=== PATIENT | male | born 1945 | race Caucasian/White ===

== ENCOUNTER 2018-05-11 09:23 | Emergency (ER) | payer MEDICARE, MEDICAID ==
[~2018-05-11] VITALS: Ht 180.3 cm; Wt 93.0 kg
[~2018-05-11 09:23] MED LIST: ASPI81TA52 PO; SIMV20TA5 PO
--- NOTE | 2018-05-11 09:50 | NUR ---
PT TAKEN TO CT,RT IS GOING WITH PT PT GOING WITH BI-PAP.
--- NOTE | 2018-05-11 10:09 | NUR ---
PT BACK FROM CT
[2018-05-11 10:10] LABS: BASOPHILS # (AUTO) 0.1 X10'3 (0-0.2); BASOPHILS % (AUTO) 0.6 % (0-1); EOSINOPHILS # (AUTO) 0.1 X10'3 (0-0.9); HEMATOCRIT 50.4 % (42.0-52.0); HEMOGLOBIN 17.6 g/dl (14.0-17.9); LYMPHOCYTES # (AUTO) 1.2 X10'3 (1.1-4.8); MEAN CORPUSCULAR HEMOGLOBIN 31.9 PG (27.0-31.0); MEAN CORPUSCULAR HGB CONC 34.9 g/dL (33.0-36.5); MEAN CORPUSCULAR VOLUME 91.5 FL (78-98); MEAN PLATELET VOLUME 11.2 FL (7.4-10.4); MONOCYTES # (AUTO) 0.5 X10'3 (0-0.9); MONOCYTES % (AUTO) 6.2 % (2-12); NEUTROPHILS # (AUTO) 6.2 X10'3 (1.8-7.7); NEUTROPHILS % (AUTO) 77.2 % (42-75); PLATELET COUNT 151 X10'3 (140-440); RED BLOOD COUNT 5.51 X10'6 (4.70-6.10); RED CELL DISTRIBUTION WIDTH 13.5 % (11.5-14.5); WHITE BLOOD COUNT 8.1 X10'3 (4.5-11.0)
[2018-05-11 10:18] LABS: ALBUMIN 3.8 G/DL (3.4-5.0); ANION GAP 12 (8-16); BLOOD UREA NITROGEN 25 MG/DL (7-18); CALCIUM 9.1 MG/DL (8.5-10.1); CHLORIDE 103 MMOL/L (99-107); CREATININE 1.25 MG/DL (0.60-1.10); GLUCOSE 141 MG/DL (70-104); POTASSIUM 3.8 MMOL/L (3.5-5.1); SODIUM 138 MMOL/L (135-145); TOTAL CARBON DIOXIDE 23.3 MMOL/L (24-32); eGFR 56 ML/MIN
[2018-05-11] MEDS ORDERED: dexamethasone sod phosphate 10mg/ml inj IM STA (10:21)
[2018-05-11] MEDS ORDERED: SUMAtriptan succ. 6 MG/0.5ml vial SQ ONE (10:25)
[2018-05-11] MEDS ORDERED: proCHLORperazine 10 MG/2 ml inj IM ONE (10:25)
[2018-05-11 11:09] VITALS: BP 169/92
[2018-05-11 11:28] LABS: LARGE PLATELETS FEW; PLATELET ESTIMATE NORMAL
== END 2018-05-11 11:10 | disposition home or self-care (01) ==
LOC: ER 09:23
DX: R51 Headache (principal); Z79.01 Long term (current) use of anticoagulants; R42 Dizziness and giddiness; R11.2 Nausea with vomiting, unspecified; E78.00 Pure hypercholesterolemia, unspecified; Z91.030 Bee allergy status; Z88.0 Allergy status to penicillin; Z88.5 Allergy status to narcotic agent; Z91.013 Allergy to seafood; Z79.82 Long term (current) use of aspirin; Z79.899 Other long term (current) drug therapy
CPT/HCPCS: 36415; 70450; 80048; 85025; 96372; 99284; J0780; J1100; J3030

== ENCOUNTER 2021-02-21 16:46 | Emergency (ER) | payer MEDICARE, MEDICAID ==
[~2021-02-21] VITALS: Ht 180.3 cm; Wt 102.5 kg
[~2021-02-21 16:46] MED LIST changes: +SIMV-42 PO; -SIMV20TA5 PO
[2021-02-21 16:55] VITALS: BP 151/84
[2021-02-21] MEDS ORDERED: ondansetron 4mg rapidly disintigrating tab PO ONE (17:00)
[2021-02-21] MEDS ORDERED: HYDROcodone/acetaminophen 5mg/325mg tablet PO ONE (17:00)
[2021-02-21] MEDS ORDERED: ondansetron/PF 4mg/2ml inj IV ONE (17:20)
[2021-02-21] MEDS ORDERED: morphine 4 MG/ML inj SYRINge IV ONE (17:20)
[2021-02-21] MEDS: normal saline 500ml IV soln 500 ML IV SCH ×3 (17:25→19:43)
[2021-02-21] MEDS ORDERED: normal saline 1000ML IV soln IVB ONE (17:25)
== END 2021-02-21 19:44 | disposition home or self-care (01) ==
LOC: ER 16:46
DX: S42.292A Other displaced fracture of upper end of left humerus, initial encounter for closed fracture (principal); S46.002A Unspecified injury of muscle(s) and tendon(s) of the rotator cuff of left shoulder, initial encounter; E78.00 Pure hypercholesterolemia, unspecified; Z95.0 Presence of cardiac pacemaker; Z91.030 Bee allergy status; Z88.0 Allergy status to penicillin; Z88.8 Allergy status to other drugs, medicaments and biological substances; Z91.013 Allergy to seafood; Z79.82 Long term (current) use of aspirin; Z79.01 Long term (current) use of anticoagulants; Z79.899 Other long term (current) drug therapy; Z95.5 Presence of coronary angioplasty implant and graft; W01.0XXA Fall on same level from slipping, tripping and stumbling without subsequent striking against object, initial encounter; Y93.89 Activity, other specified; Y92.89 Other specified places as the place of occurrence of the external cause; Y99.8 Other external cause status
CPT/HCPCS: 29105; 73030; 96374; 99283; J2405; J7030; J7040

== ENCOUNTER 2024-07-19 11:05 | Emergency (ER) | payer MEDICARE ==
[~2024-07-19] VITALS: Ht 180.3 cm; Wt 92.0 kg
[2024-07-19 11:28] VITALS: BP 118/61; PULSE 51; RESP 18; O2SAT 99
--- NOTE | 2024-07-19 11:34 | Physician Documentation ---
History of Present Illness ~ Stated Complaint: R HIP PAIN Time Seen by MD: 11:29 OK to notify your PCP?: No Primary Medical Doctor: roxanna [facility] 79 Year old male presents to the ED after falling two days ago on his right hip. States that since then he has had excruciating pain to a level 12. States that he is having difficulty with ambulation. Says he had a ground level fall from wheelchair. Denies any head strike Day of Onset: July 19, 2024 Medication Reconciliation Allergies: Coded Allergies: venom-honey bee (Unverified Allergy, Intermediate, hives & swelling , 05/13/14) Penicillins (Verified Allergy, Unknown, 08/03/13) acetaminophen (Verified Adverse Reaction, Intermediate, 08/03/13) nausea hydrocodone (Verified Adverse Reaction, Intermediate, 08/03/13) nausea Uncoded Allergies: shrimp (Allergy, Intermediate, rash, respiratory distress, 05/13/14) Scheduled Aspirin (Aspirin EC), 1 TABLET PO DAILY, (Reported) Simvastatin* (Zocor*), 1 TAB PO HS, (Reported) Scheduled PRN Hydrocodone Bit/Acetaminophen 5/325 MG ([place] 5/325 MG), 1 TAB PO Q6H PRN for pain Past Medical History Past Medical History: High Cholesterol Past Surgical History: pacemaker Patient History: (CABG) Coronary artery bypass grafting MOTHER, Name: Elizabeth Mehta , , Age: 60 years and older, Cause: CVA (cerebral vascular accident), Not a twin, Race: WHITE, Onset:Unknown (CAD) Coronary arteriosclerosis MOTHER, Name: Elizabeth Mehta , , Age: 60 years and older, Cause: CVA (cerebral vascular accident), Not a twin, Race: WHITE, Onset:Unknown (CVA) Cerebrovascular accident MOTHER, Name: Elizabeth Mehta , , Age: 60 years and older, Cause: CVA (cerebral vascular accident), Not a twin, Race: WHITE, Onset:Unknown ([place]) Myocardial infarction MOTHER, Name: Elizabeth Mehta , , Age: 60 years and older, Cause: CVA (cerebral vascular accident), Not a twin, Race: WHITE, Onset:Unknown Alcohol Use: None Drug Use: none Lives with: Spouse Lives In: Home Review of Systems All Other Systems at this time: Reviewed and Negative ROS As stated above in the HPI, otherwise all systems are reviewed and negative. Physical Exam Physical Exam General: Alert, no apparent distress. Respiratory: Lungs clear, no respiratory distress. Cardiovascular: Regular rate and rhythm, no murmurs. Gastrointestinal: Soft, nontender, nondistended. Bowels sounds present. Extremities: Normal range of motion, no deformity. Neurologic: Oriented x4. Psychiatric: Normal mood and affect. Skin: Normal color, warm and dry. No edema, no ecchymosis. Progress Results/Orders Results/Orders Orders - OBDULIA OTERO NP Hip Unilateral 2 Views (07/19/24 11:29) Completed Orders - OBDULIA OTERO NP Hip Unilateral 2 Views (07/19/24 11:29) Vital Signs 07/19/24 07/19/24 11:28 12:47 Temp 97.8 97.8 Pulse 51 Resp 18 B/P (MAP) 118/61 Pulse Ox 99 Medical Decision Making Findings My interpretation not had not see any evidence of acute fracture in the right hip. i do suspect possible contusion. Require an MRI of her further evaluation at this time however he does not require any emergent imaging. I sent him home with some pain management medication Differential Dx:Considerations: Include: Avascular necrosis, Arthritis, Arthritis-Rheumatoid, Arthritis-Septic, Bursitis, Contusion, Dislocation, DJD, Fracture-femur, Fracture-hip, Fracture-open, Fracture-pelvis, Gout, Hernia, Nrhv-[id number] dz., Neurovascular injury, Slip capital femoral epip, Sprain, Transient synovitis, Other Departure Disposition: 01 HOME / SELF CARE / HOMELESS Impression: Primary Impression: Fall Condition: Stable Discharge Instructions: Fall Prevention in the Home, Adult, [id number] Referrals: NO PRIMARY CARE PROVIDER (PCP) Prescriptions Hydrocodone Bit/Acetaminophen 5/325 MG ([place] 5/325 MG) 5 Mg/325 Mg Tablet 1 TAB PO Q6H PRN for pain, #14 TAB Prov: OBDULIA OTERO NP 07/19/24 Signature Scribe Signature: g Attestation: The note accurately reflects work and decisions made by me.Obdulia Otero - RAIN 07/19/24 14:43 OBDULIA OTERO NP July 19, 2024 11:34
--- NOTE | 2024-07-19 12:16 | RADIOLOGY REPORT ---
CLINICAL INDICATION: fall TECHNIQUE: Frontal view of the pelvis, 2 views of the right hip Comparison: None FINDINGS/IMPRESSION: There is no evidence of acute fracture or dislocation. Mild degenerative changes. Soft tissues are unremarkable.
[2024-07-19] MEDS ORDERED: HYDR-3965 PO (12:33)
[2024-07-19 12:47] VITALS: TEMP 97.8
== END 2024-07-19 12:50 | disposition home or self-care (01) ==
LOC: ER 11:06
DX: M25.551 Pain in right hip (principal); E78.00 Pure hypercholesterolemia, unspecified; Z88.0 Allergy status to penicillin; Z88.5 Allergy status to narcotic agent; Z91.030 Bee allergy status; Z95.0 Presence of cardiac pacemaker; Z95.1 Presence of aortocoronary bypass graft; Z79.82 Long term (current) use of aspirin; W05.0XXA Fall from non-moving wheelchair, initial encounter; Y93.89 Activity, other specified; Y92.89 Other specified places as the place of occurrence of the external cause; Y99.8 Other external cause status
CPT/HCPCS: 73502; 99283

== ENCOUNTER 2024-09-13 07:53 | Emergency (ER) | payer MEDICARE ==
[~2024-09-13] VITALS: Ht 172.7 cm; Wt 85.0 kg
[2024-09-13 07:54] VITALS: BP 128/56; PULSE 62; RESP 18; TEMP 97.5; O2SAT 99
--- NOTE | 2024-09-13 08:11 | Physician Documentation ---
History of Present Illness ~ Chief Complaint: Shoulder pain Stated Complaint: SHOULDER INJURY Time Seen by MD: 08:07 Primary Medical Doctor: roxanna OLIVA This is a 79-year-old gentleman who had sustained a fall yesterday, was seen at procedure, diagnosed with a humeral neck fracture, discharged with the pain medication, copies of the x-ray, and told to follow-up with the Orthopedic surgery. They have not made calls to either [facility] or [facility], but came here because they did not want to wait and wanted to be seen emergently by an orthopedist in the ER. No new injury. Pain is controlled. No neurovascular deficits with a inquired in plain Pashto. No concern for tobacco, alcohol or illicit substances use Tetanus within 5 years?: No Medication Reconciliation Allergies: Coded Allergies: venom-honey bee (Unverified Allergy, Intermediate, hives & swelling , 09/13/24) Penicillins (Verified Allergy, Unknown, 09/13/24) acetaminophen (Verified Adverse Reaction, Intermediate, 09/13/24) nausea hydrocodone (Verified Adverse Reaction, Intermediate, 09/13/24) nausea Uncoded Allergies: shrimp (Allergy, Intermediate, rash, respiratory distress, 05/13/14) Scheduled Aspirin (Aspirin EC), 1 TABLET PO DAILY, (Reported) Simvastatin* (Zocor*), 1 TAB PO HS, (Reported) Past Medical History Past Medical History: High Cholesterol Past Surgical History: pacemaker Patient History: (CABG) Coronary artery bypass grafting MOTHER, Name: Elizabeth Mehta , , Age: 60 years and older, Cause: CVA (cerebral vascular accident), Not a twin, Race: WHITE, Onset:Unknown (CAD) Coronary arteriosclerosis MOTHER, Name: Elizabeth Mehta , , Age: 60 years and older, Cause: CVA (cerebral vascular accident), Not a twin, Race: WHITE, Onset:Unknown (CVA) Cerebrovascular accident MOTHER, Name: Elizabeth Mehta , , Age: 60 years and older, Cause: CVA (cerebral vascular accident), Not a twin, Race: WHITE, Onset:Unknown ([place]) Myocardial infarction MOTHER, Name: Elizabeth Mehta , , Age: 60 years and older, Cause: CVA (cerebral vascular accident), Not a twin, Race: WHITE, Onset:Unknown Alcohol Use: None Drug Use: none Lives with: Spouse Lives In: Home Review of Systems ROS 10 point review of systems was performed and unless noted above in HPI is negative for acute process/complaint. Physical Exam Vital Signs: Temperature: 97.5, Source: Temporal, Heart Rate: 62, Respiratory Rate: 18, BP: 128/56, Pulse Oximetry: 99, Weight: 85.000 Oxygen Flow Rate: 0 Physical Exam Physical examination: GENERAL: Awake, alert, oriented, GCS 15, no apparent distress, non-toxic appearing, answers questions, follows commands appropriately. HEENT: Atraumatic, normocephalic, pupils equal, extraocular muscles intact Active gross movements, sclerae anicteric, mucus membranes moist, no stridor. NECK: Midline, no JVD CARDIOVASCULAR: Good skin perfusion without evidence of pallor, mottling. PULMONARY: Nonlabored, symmetric chest rise, no audible wheezing, no accessory muscle use, no respiratory distress, speaking in full sentences. GASTROINTESTINAL: Not distended. NEUROLOGIC: Lucid with normal mental status. Normal facial symmetry. Moves all extremities symmetrically and with purpose. No truncal ataxia. Speech is fluid without evidence of dysarthria or aphasia, no focal deficits appreciated. EXTREMITIES: Acute deformities Skin: warm, dry PSYCHIATRIC: Normal affect, normal insight, normal concentration. Focused exam: Right upper extremity is in the sling, neurovascularly intact. No gross deformity. Progress Results/Orders Results/Orders Vital Signs 09/13/24 07:54 Temp 97.5 Pulse 62 Resp 18 B/P (MAP) 128/56 Pulse Ox 99 O2 Flow Rate 0 Medical Decision Making Findings Facility Status: ED Holds, [facility] process The plan was discussed with the patient, who demonstrates clear understanding of the plan and is in agreement with the plan unless otherwise noted in the chart. All questions have been answered, all concerns were addressed unless otherwise documented. I was available throughout their ED stay for frequent reassessment and questions. Differential Diagnoses (considered and possible or likely): [Known history of a humeral neck fracture, acute traumatic pain, no evidence of neurovascular injury.] ??Differential Diagnoses (considered and unlikely, not requiring evaluation currently): [None] MDM Data Please see HPI for the following: Independent Historians and external Records Review. Historian: [Patient] Independent Historians: ?[Record review including discharge instructions from [facility], there x-ray read and films] Medication Management: [Reviewed medication list] Social History and determinants: [Reviewed] Please see the body of the note for the following: Any independent interpretations of ECG, imaging studies. All vitals signs/haemodynamics, ordered tests were independently reviewed and interpreted by myself. Nursing triage complaint and vitals reviewed, additional nursing notes were reviewed as available and I agree unless otherwise noted or documented in contradiction in the chart Vital Signs: Independently reviewed Labs: Independently interpreted Imaging: Independently interpreted Old Medical Records: Independently reviewed, see HPI for relevant summary and information Pulse Oximetry: [98%] interpreted as [normal on room air] by me Additionally notably showing: [Hemodynamically stable] Tests considered but not ordered include: [Hematologic workup and imaging has been considered but does not appear to be necessary given clinical nature of diagnosis] Social Determinants of Health Impact: Patient was evaluated in [facility], [facility] [place] due to below par ratio of patient to medical providers. [] Comorbid Conditions Impacting Present Evaluation and Care/Treatment: [Recent humerus fracture] Management Discussions with other Healthcare Providers: [None] Treatment and Disposition Medication Management (Given or considered): []. See EMR for details Consideration for Hospitalization/Escalation/Deescalation of Care: Admission for observation has been considered, [however the patient is able to tolerate p.o., their symptoms are controlled, they are able to rely on oral medications, and their chief complaint/diagnosis can be managed on outpatient basis.] ?ED Course:?[The gentleman has no emergent medical condition requiring immediate consultation with an orthopedic surgeon, there is no evidence of open fracture, no evidence of neurovascular deficit.] ?Shared decision making:?[Patient is hemodynamically stable for discharge home with follow with their primary care provider. [ ] Specific and cautious return precautions provided and discussed with full understanding. Any incidental findings were also discussed and follow up recommendations given. [] All questions answered. Patient/family were able to verbalize back return precautio ns. Patient/family agree to plan. Copies of imaging and laboratory studies were provided.] Code status:?FULL Please see the full Electronic Medical Record for full details of nursing documentation, medications list, other records of complete past medical history and conditions, vital signs, laboratory studies, and any radiologic study interpretations by radiologists. Portions of this note were completed using [employer] dictation software and as a result there may exist minor errors in sp elling. I have reviewed elements of past family and social history and agree as included in note. Departure Disposition: 01 HOME / SELF CARE / HOMELESS Impression: Primary Impression: History of humerus fracture Additional Impression: Acute traumatic pain Condition: Stable Additional Instructions: Please follow-up with the orthopedic surgeon of your choice in 5-7 days. Referrals: NO PRIMARY CARE PROVIDER (PCP) Education Educated: Patient, Family Educated regarding: diagnosis, treatment, prognosis, need for follow up Signature Scribe Signature: No scribe Attestation: This note accurately reflects clinical decisions, work performed by myself, DO BALA Olson NICHOLAS M DO Sep 13, 2024 08:11
== END 2024-09-13 08:16 | disposition home or self-care (01) ==
LOC: ER 07:54
DX: M25.511 Pain in right shoulder (principal); G89.11 Acute pain due to trauma; I25.10 Atherosclerotic heart disease of native coronary artery without angina pectoris; E78.00 Pure hypercholesterolemia, unspecified; Z95.0 Presence of cardiac pacemaker; Z91.030 Bee allergy status; Z95.1 Presence of aortocoronary bypass graft; Z88.0 Allergy status to penicillin; Z88.5 Allergy status to narcotic agent; Z79.82 Long term (current) use of aspirin
CPT/HCPCS: 99281; 99282